=== PATIENT | female | born 2005 | race Caucasian/White ===

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

== ENCOUNTER 2023-03-21 12:44 | Outpatient (REF) | payer MEDICAID, SELFPAY ==
[2023-03-21 16:09] LABS: Abs Immature Grans 0.01 10^3/uL (0.0-0.06); Absolute Basophil Count 0.03 10^3/uL (0.0-0.2); Absolute Eosinophil Count 0.08 10^3/uL (0.0-0.7); Absolute Lymphocyte Count 2.11 10^3/uL (1.2-3.4); Absolute Monocyte Count 0.42 10^3/uL (0.1-0.8); Absolute Neutrophil Count 3.24 10^3/uL (1.2-6.7); Basophils % 0.5; Eosinophils % 1.4; HCT 40.3 % (36.0-46.0); HGB 13.6 g/dL (11.2-15.7); Immature Grans % 0.2; Lymphocytes % 35.8; MCHC 33.7 % (32.0-36.0); MCV 89 fL (80-95); MPV 10.7 fL (8.0-11.0); Monocytes % 7.1; Platelet Count 186 10^3/uL (130-400); RBC 4.53 10^6/uL (3.93-5.22); RDW 12.8 % (11.7-14.6); RDW-SD 41.9 fL; WBC 5.89 10^3/uL (4.4-10.8)
[2023-03-21 16:20] LABS: Anion Gap 10.6 mmol/L (3-11); BUN 17 mg/dL (7-18); CO2 21.4 mmol/L (21.0-32.0); CREATININE 0.8 mg/dL (0.55-1.02); Calcium 8.7 mg/dL (8.5-10.1); Chloride 105 mmol/L (98-107); Estimated GFR 108.78 (mL/min/1.73m2); Glucose 89 mg/dL (74-106); Sodium 137 mmol/L (136-145); TSH (W/Ref FT4) 2.05 uIU/mL (0.52-4.13)
[2023-03-21 16:33] LABS: Vitamin D 25 Total 23.2 ng/mL (30-100)
== END 2023-03-21 12:45 | disposition home or self-care (01) ==
LOC: NCHCN 12:44
PROVIDERS: PCP Nurse Practitioner Family; Visit Provider Nurse Practitioner Family
DX: Z00.00 Encounter for general adult medical examination without abnormal findings (principal); F41.8 Other specified anxiety disorders
CPT/HCPCS: 80048; 82306; 84443; 85025

== ENCOUNTER 2025-02-27 05:04 | Outpatient (CLI) | payer MEDICAID, SELFPAY ==
[2025-03-01 12:35] LABS: TB Interpretation Negative (Negative); TB1 Ag minus Nil 0.02 IU/mL; TB2 Ag minus Nil 0.01 IU/mL
== END 2025-02-27 05:05 | disposition home or self-care (01) ==
PROVIDERS: PCP Nurse Practitioner Family; Visit Provider Nurse Practitioner Family
DX: Z11.1 Encounter for screening for respiratory tuberculosis (principal)
CPT/HCPCS: 36415; 86480